=== PATIENT | male | born 1950 | race African-American/Black ===

== ENCOUNTER → 2018-02-08 | Day surgery (SDC) | payer MEDICARE ==
[~2018-02-08] MED LIST: AMLODIPINE BESY10 MG PO; ASPIRIN81 MG PO; FENTANYL CITRATE/PF 100MCG/2 ML INJ ONE; LIPITOR20 MG PO; LISINOPRIL10 MG PO; METFORMIN HCL850 MG PO; MIDAZOLAM HCL 2 MG/2 ML VIAL ONE; OR PHACO EYE KIT ONE; PREOP PHACO EYE KIT ONE
[2018-02-08 15:40] VITALS: BP 143/87
== END | disposition home or self-care (01) ==
LOC: OR 13:06
PROVIDERS: ATTEND Ophthalmology
DX: H25.042 Posterior subcapsular polar age-related cataract, left eye (principal); H25.12 Age-related nuclear cataract, left eye; I10 Essential (primary) hypertension; E78.2 Mixed hyperlipidemia; E11.9 Type 2 diabetes mellitus without complications; F32.9 Major depressive disorder, single episode, unspecified; Z79.82 Long term (current) use of aspirin; Z79.84 Long term (current) use of oral hypoglycemic drugs; Z86.73 Personal history of transient ischemic attack (TIA), and cerebral infarction without residual deficits
CPT/HCPCS: 36415; 66984; 82948; J2250; V2632

== ENCOUNTER → 2018-02-22 | Day surgery (SDC) | payer MEDICARE ==
--- OUTSIDE RECORDS SUMMARY | 2018-02-22 13:18 | XMS REPORT ---
[facility] Address Unknown Phone Unavailable Care Team Providers Care Transportation Engineer Name Role Phone DR MICHAEL CANNON Unavailable Unavailable DR EYAL DIAMOND Unavailable Unavailable Problems This patient has no known problems. Allergies, Adverse Reactions, Alerts This patient has no known allergies or adverse reactions. Medications This patient has no known medications. Encounters Start Date/Time End Date/Time Encounter Type Admission Type Attending Clinicians Care Facility Care Department Encounter ID 2017-12-22 09:06:00 Inpatient MICHAEL GILL [facility] PT [id number] 2018-01-25 15:21:00 2018-01-25 23:59:00 Outpatient MICHAEL GILL [facility] RAD [id number] 2016-07-21 09:57:00 2016-08-23 23:59:00 Outpatient EYAL DICKINSON [facility] PT [id number] Results Test Description Test Time Test Comments Text Results Atomic Results Result Comments XR CHEST 2 VIEW 2018-01-25 16:31:03 Exam: Chest x-ray 2 viewsHISTORY: Preop testingLocation: [id number]:The heart size is normal and lung gonzalez are clear. Tortuous thoracic aortanoted. Osseous structures are intact.IMPRESSION:1. No acute abnormality. MRI UPPER EXT JOINT W/O CONTR*GEOVANI* 2016-07-03 08:01:52 Exam: MRI of the right shoulder without contrastHistory: Pain with internal derangement and limited range of motionLocation: [id number]: High-resolution multiplanar multiecho imaging of the right shoulderwas performed without contrast.Findings:Mild edema tracks along the distal supraspinatus tendon consistent withtendinopathy and/or strain without rotator cuff tear.The infraspinatus, biceps, subscapularis, and teres minor tendons are intact.No evidence of labral tear.No evidence of fracture or marrow edema. Small spur/exostosis projects from thesuperior humeral head measuring 3 x 4 mm seen best on coronal image 12 andsagittal image 12.The acromion is type II with moderate acromioclavicular hypertrophic changescreating moderate impingement in the neutral position.No evidence of intramuscular edema or atrophy.Small effusion noted.Glenohumeral ligaments are intact.Impression:1. Mild tendinopathy and/or strain of the distal supraspinatus tendon withoutrotator cuff tear. Moderate acromioclavicular impingement. Small effusionnoted. XR SHOULDER LEFT 3 VIEWS *WW* 2016-06-25 16:58:52 Left shoulder, 3 viewsLocation Code: [id number] HISTORY: painCOMMENTS: AP views in internal and external rotation along with a transscapularY view of the left shoulder were obtained. There is no acute fracture ormalalignment. The soft tissues are unremarkable.IMPRESSION: No acute abnormality. Mild glenohumeral arthrosis.
[2018-02-22 16:30] VITALS: BP 133/83
== END | disposition home or self-care (01) ==
LOC: OR 13:15
PROVIDERS: ATTEND Ophthalmology
DX: H25.11 Age-related nuclear cataract, right eye (principal); I10 Essential (primary) hypertension; E11.9 Type 2 diabetes mellitus without complications; Z79.84 Long term (current) use of oral hypoglycemic drugs; E78.2 Mixed hyperlipidemia; F17.210 Nicotine dependence, cigarettes, uncomplicated; Z86.73 Personal history of transient ischemic attack (TIA), and cerebral infarction without residual deficits; Z79.82 Long term (current) use of aspirin
CPT/HCPCS: 36415; 66984; 82948; J2250; V2632